=== PATIENT | male | born 1985 | race Caucasian/White ===

== ENCOUNTER 2019-09-09 19:25 | Emergency (ER) | payer OTHER | END 2019-09-09 20:13 | disposition home or self-care (01) | LOC: EDH 19:25 | DX: S80.872A Other superficial bite, left lower leg, initial encounter (principal); Z90.89 Acquired absence of other organs; W54.0XXA Bitten by dog, initial encounter; Y93.89 Activity, other specified; Y92.89 Other specified places as the place of occurrence of the external cause; Y99.8 Other external cause status ==